=== PATIENT | male | born 1955 | race Caucasian/White ===

== ENCOUNTER 2017-06-01 16:43 | Emergency (ER) | payer OTHER ==
[~2017-06-01] VITALS: Ht 186.7 cm; Wt 121.5 kg
[2017-06-01 16:42] VITALS: TEMP 36.9; Ht 186.7 cm; Wt 121.5 kg
[2017-06-01] MEDS ORDERED: GLC/500 PO (17:16)
[2017-06-01] MEDS ORDERED: TRAZ50TA35 PO (17:16)
[2017-06-01] MEDS ORDERED: PANT40TA PO (17:16)
[2017-06-01] MEDS ORDERED: NVLGIPEN SC (17:16)
[2017-06-01] MEDS ORDERED: INSDGI SC (17:16)
[2017-06-01] MEDS ORDERED: ASPI81TA28 PO (17:16)
[2017-06-01] MEDS ORDERED: ANTI-INFLAMMATORY PO (17:28)
--- NOTE | 2017-06-01 17:42 | DIAGNOSTIC IMAGING REPORT ---
LEFT KNEE 2 VIEWS HISTORY: L quad tendon rupture COMPARISON: None. FINDINGS: Moderate joint effusion with no fracture or dislocation. Soft tissue thickening and irregularity at the expected location of the quadriceps tendon. There is associated patella baja. Therefore, this likely represents a quadriceps tendon injury/tear. Thickening at the patellar ligament is likely due to the shortening. No radiopaque foreign bodies. IMPRESSION: 1. Soft tissue thickening and irregularity at the expected location of the quadriceps tendon with associated patella baja. Therefore, this likely represents a quadriceps tendon injury/tear. 2. Moderate joint effusion. 3. No fractures. Electronically signed by: Miquel Saunders M.D. 06/01/2017 5:41 PM Dictated Date/Time: 06/01/2017 5:39 PM
[2017-06-01 18:20] VITALS: BP 130/72; PULSE 88; O2SAT 93
[2017-06-01] MEDS ORDERED: OXYC1TAB3 PO (18:38)
[2017-06-01] MEDS ORDERED: OXYCODONE IR HOME PACK PO ONE (18:45)
--- NOTE | 2017-06-01 20:36 | EMERGENCY ROOM VISIT NOTE ---
History First contact with patient: 16:53 Chief Complaint: LEG PAIN,LEG INJURY Stated Complaint: LEG INJURY History of Present Illness The patient is a 62 year old male who presents to the Emergency Room with complaints of a left knee injury after tripping on a chain while bowhunting in the area. He reports that this caused him to lose his balance, and felt his knee pop. The patient now reports inability to apply any weight to the leg. He denies any other injuries from this fall, including head injury, neck pain or back pain. He denies any pain extending into the thigh or lower leg. Denies paresthesias or numbness of the left lower extremity. The patient currently rates his discomfort a 3 out of 10. The patient is currently under care of Dr. Iraheta, orthopedic surgeon in [place], [place]. He was scheduled for bilateral total knee arthroplasties in 1 month. Review of Systems 10 system review was performed and was negative except for pertinent positives and negatives as indicated in history of present illness Past Medical/Surgical History Medical Problems: (1) Diabetes mellitus type 2, insulin dependent (2) Osteoarthritis Surgical Problems: (1) No history of previous surgery Family History FH: diabetes mellitus FH: heart disease FH: hypertension Social History Smoking Status: Never Smoker Alcohol Use: occasionally Marital Status: Occupation Status: employed Current/Historical Medications Scheduled Aspirin (Aspirin Ec), 81 MG PO DAILY Insulin Aspart (Novolog Flexpen), 25-30 SC TIDM Insulin Glargine (Lantus), 65 UNITS SC HS Metformin Hcl (Glucophage), 500 MG PO BID Pantoprazole (Protonix), 40 MG PO DAILY Trazodone Hcl (Trazodone), 50 MG PO UD [Anti-Inflammatory], 1 TAB PO BID Scheduled PRN Oxycodone Ir (Roxicodone Ir), 1-2 TAB PO Q4H PRN for Pain Physical Exam Vital Signs Date Time Temp Pulse Resp B/P (MAP) Pulse Ox O2 Delivery O2 Flow Rate FiO2 06/01/17 18:20 88 20 130/72 93 Room Air 06/01/17 16:42 36.9 91 18 144/81 93 Room Air Physical Exam CONSTITUTIONAL: Healthy and well nourished. Alert and oriented X 3 with positive affect. Patient does not appear in any acute distress. HEENT: Normocephalic, atraumatic. Pupils equal, round and reactive. NECK: Full active range of motion without discomfort. RESPIRATORY: Clear to auscultation bilaterally with no wheezing, crackles, rhonchi or stridor. CARDIOVASCULAR: Regular rate and rhythm with no murmurs, rubs or gallops. GASTROINTESTINAL: Bowel sounds present in all quadrants. Soft and nontender to palpation. MUSCULOSKELETAL: Examination of the left knee shows a diffuse joint effusion. He has notable softness/rupture of the quadriceps tendon with tenderness to palpation over the superior pole of the patella. The patella is mobile. No focal tenderness over the medial or lateral joint line. No obvious anterior or posterior draw. Collateral ligaments are intact. Pedal pulses are intact. INTEGUMENTARY: No rash or other significant dermatologic conditions noted. NEUROLOGIC: No focal neurologic deficits noted. Medical Decision & Procedures ER Provider Diagnostic Interpretation: My interpretation of left knee x-rays shows a joint effusion without evidence for other fractures or dislocation. Patella baja is present, suggestive of quadriceps tendon rupture. Radiologist report is as follows: LEFT KNEE 2 VIEWS HISTORY: L quad tendon rupture COMPARISON: None. FINDINGS: Moderate joint effusion with no fracture or dislocation. Soft tissue thickening and irregularity at the expected location of the quadriceps tendon. There is associated patella baja. Therefore, this likely represents a quadriceps tendon injury/tear. Thickening at the patellar ligament is likely due to the shortening. No radiopaque foreign bodies. IMPRESSION: 1. Soft tissue thickening and irregularity at the expected location of the quadriceps tendon with associated patella baja. Therefore, this likely represents a quadriceps tendon injury/tear. 2. Moderate joint effusion. 3. No fractures. Medications Administered Medications (Trade) Dose Ordered Sig/[place] Route Start Time Stop Time Status Last Admin Dose Admin Oxycodone HCl (Roxicodone Immediate Rel 5MG Home Pack) 1 homepack UD ONCE PO 06/01/17 18:45 06/01/17 18:46 DC 06/01/17 18:45 1 HOMEPACK ED Course Patient history and physical exam were performed. Nurse's notes were reviewed. Vital signs were reviewed and were normal. The patient refused any analgesics on initial exam. X-rays of the left knee are consistent with a quadriceps tendon rupture. A knee immobilizer and crutches were dispensed. The patient was instructed to remain nonweightbearing until he follows up with his orthopedic surgeon at home. The patient was given copies of his x-rays on disc. He was encouraged to intermittently apply ice and elevate the knee for swelling and pain. Tylenol if needed for baseline pain relief. The patient was provided a home pack and prescription for OxyIR as needed for worse pain. The patient was happy with plan of care, voiced understanding of all discharge instructions, and rated his pain a 3 out of 10 at the time of discharge with his . Medical Decision [place] Drug Monitoring Program Search Results: patient reviewed within database Medication Reconcilliation Current Medication List: was personally reviewed by me Blood Pressure Screening Patient's blood pressure: Normal blood pressure Impression Primary Impression: Rupture of left quadriceps tendon Additional Impressions: Fall from slip, trip, or stumble Abrasion of right knee Departure Information Prescriptions Oxycodone Ir (Roxicodone Ir) 5 Mg Tab 1-2 TAB PO Q4H Y for Pain, #15 TAB For Initial Treatment Prov: Stanley Sampson [place] 06/01/17 Referrals No Doctor, Assigned (PCP) Patient Instructions My [facility] Problem Qualifiers Primary Impression: Rupture of left quadriceps tendon Encounter type: initial encounter Qualified Codes: S76.112A - Strain of left quadriceps muscle, fascia and tendon, initial encounter Additional Impressions: Fall from slip, trip, or stumble Encounter type: initial encounter Qualified Codes: W01.0XXA - Fall on same level from slipping, tripping and stumbling without subsequent striking against object, initial encounter Abrasion of right knee Encounter type: initial encounter Qualified Codes: S80.211A - Abrasion, right knee, initial encounter
== END 2017-06-01 18:45 | disposition home or self-care (01) ==
LOC: C.EDB 16:46
DX: S76.112A Strain of left quadriceps muscle, fascia and tendon, initial encounter (principal); W01.0XXA Fall on same level from slipping, tripping and stumbling without subsequent striking against object, initial encounter; S80.211A Abrasion, right knee, initial encounter; E11.9 Type 2 diabetes mellitus without complications; M19.90 Unspecified osteoarthritis, unspecified site; Z83.3 Family history of diabetes mellitus; Z82.49 Family history of ischemic heart disease and other diseases of the circulatory system; Z79.82 Long term (current) use of aspirin; Z79.4 Long term (current) use of insulin